=== PATIENT | female | born 1995 | race Caucasian/White ===

== ENCOUNTER 2023-04-25 09:43 | Emergency (ER) | payer OTHER, SELFPAY | END 2023-04-25 12:18 | disposition home or self-care (01) | LOC: MADERS 09:43 | DX: H10.33 Unspecified acute conjunctivitis, bilateral (principal) | CPT/HCPCS: 99282 ==

== ENCOUNTER 2024-09-21 20:30 | Emergency (ER) | payer OTHER ==
[2024-09-21] MEDS ORDERED: methylPREDNISolone Acetate 80 mg (1 mL) VIAL ONE (21:25)
[2024-09-21] MEDS ORDERED: HYDROcodone/Acetaminophen 5/325 mg Tablet ONE (21:25)
[2024-09-21] MEDS ORDERED: Oseltamivir 75 MG CAP ONE (21:25)
== END 2024-09-21 21:56 | disposition home or self-care (01) ==
LOC: MADERS 20:30
DX: J10.1 Influenza due to other identified influenza virus with other respiratory manifestations (principal)
CPT/HCPCS: 87081; 87428; 87430; 96372; 99283; J1040